=== PATIENT | female | born 1975 | race African-American/Black ===

== ENCOUNTER 2017-03-26 17:02 | Emergency (ER) | payer OTHER ==
[~2017-03-26] VITALS: Ht 154.9 cm; Wt 55.0 kg
[2017-03-26 18:27] VITALS: BP 110/48
[2017-03-26 18:54] LABS: BASOPHILS % 0.8 % (0.0-2.0); EOSINOPHILS % 1.1 % (0.0-5.0); HEMATOCRIT. 33.8 % (36.0-48.0); HEMOGLOBIN. 11.7 g/dL (12.0-16.0); LYMPHOCYTES % 55.3 % (20.0-50.0); MEAN CORPUSCULAR HEMOGLOBIN 33.6 pg (28.0-32.0); MEAN CORPUSCULAR VOLUME 96.7 fL (81.0-99.0); MEAN PLATELET VOLUME 8.1 fl (7.4-10.4); MONOCYTES % 7.4 % (2.0-8.0); NEUTROPHILS % 35.4 % (40.0-76.0); PLATELET 249 x1000/uL (130-400); RED BLOOD CELL COUNT 3.49 mill/uL (4.2-5.4); RED CELL DISTRIBUTION WIDTH 15.4 % (11.6-14.6)
[2017-03-26 18:57] LABS: CHLORIDE 100 mEq/L (98-107); PROTHROMBIN TIME 10.8 sec (9.4-11.6)
[2017-03-26 19:04] LABS: CARBON DIOXIDE 24 mEq/L (21-32); ETHANOL BLOOD < 10 mg/dL
== END 2017-03-26 19:23 | disposition left against medical advice (07) ==
LOC: ER 17:05
DX: G93.40 Encephalopathy, unspecified (principal); R55 Syncope and collapse
CPT/HCPCS: 36415; 80053; 80307; 80329; 82962; 85025; 85610; 99284; G0482